=== PATIENT | female | born 1965 | race Two or more races ===

== ENCOUNTER 2017-12-31 13:02 | Emergency (ER) | payer OTHER ==
[2017-12-31] MEDS: OXYCODONE/ACETAMINOPHEN (5/325) TAB PO (14:59)
[2017-12-31] MEDS: ONDANSETRON (ODT) 4 MG TAB ODT (14:59)
== END 2017-12-31 15:55 | disposition home or self-care (01) ==
LOC: FTE 13:02
DX: M79.671 Pain in right foot (principal); M25.532 Pain in left wrist; M79.642 Pain in left hand; M79.1 Myalgia
CPT/HCPCS: 73110; 73110-LT; 73130-LT; 73562; 99284-25